=== PATIENT | male | born 1960 ===

== ENCOUNTER 2019-09-21 10:35 | Day surgery (SDC) | payer MEDICARE ==
[~2019-09-21] VITALS: Ht 157.5 cm; Wt 74.8 kg
[2019-09-21] VITALS (7 sets, daily range): BP systolic 109–150; BP diastolic 57–86
[~2019-09-21 10:35] MED LIST: Proparacaine 0.5% Opth Soln 15ml RIGHT EYE ONE
--- NOTE | 2019-09-21 10:48 | Anethesia Preoperative Eval ---
Anesthesia Pre-op PMH/ROS General Date of Evaluation: Sep 21, 2019 Anesthesiologist: Garfield ASA Score: ASA 2 Mallampati Score Class I : Soft palate, uvula, fauces, pillars visible Class II: Soft palate, uvula, fauces visible Class III: Soft palate, base of uvula visible Class IV: Only hard plate visible Mallampati Classification: Class II Surgeon: Frank Diagnosis: Vitreous opacity right eye Surgical Procedure: right eye vitrectomy Anesthesia History: none Family History: no anesthesia problems Allergies: Coded Allergies: No Known Allergies (Unverified , 09/20/19) Medications: see eMAR Patient NPO?: Yes NPO Date: Sep 20, 2019 NPO Time: 22:00 Past Medical History Cardiovascular: Reports: HTN, other - HLD; Denies: CAD, [place], valve dz, arrhythmia Pulmonary: Denies: asthma, COPD, CATHRYN, other Gastrointestinal/Genitourinary: Reports: GERD, other - gastritis; Denies: CRI, ESRD Neurologic/Psychiatric: Reports: depression/anxiety; Denies: dementia, CVA, TIA, other Endocrine: Denies: DM, hypothyroidism, steroids, other HEENT: Denies: cataract (L), cataract (R), glaucoma, [place] (L), [place] (R), other Hematology/Immune: Denies: anemia, DVT, bleeding disorder, other Musculoskeletal/Integumentary: Reports: other - low back pain/injury; Denies: OA, RA, DJD, DDD, edema PSxH Narrative: Denies Anesthesia Pre-op Phys. Exam Physician Exam see chart Constitutional: NAD Cardiovascular: RRR Respiratory: CTA Airway Exam Mallampati Score: Class II MO: full ROM: full Anesthesia Pre-op A/P Labs see chart Studies Pre-op Studies: EKG - sr Risk Assessment & Plan Assessment: ASA II Plan: MAC Status Change Before Surgery: No Pre-Antibiotics Drug: N/A Shikha Rios MD Sep 21, 2019 10:48
[2019-09-21] MEDS ORDERED: Cyclopentolate 1% Opth Sol 2ml ONE (10:53)
[2019-09-21] MEDS ORDERED: Tropicamide 1% Opth 15ml Soln ONE (10:54)
[2019-09-21] MEDS ORDERED: Proparacaine 0.5% Opth Soln 15ml ONE (10:54)
[2019-09-21] MEDS ORDERED: Phenylephrine 2.5% Op 2ml Soln ONE (10:54)
[2019-09-21] MEDS: Cyclopentolate 1% Opth Sol 2ml RIGHT EYE SCH ×3 (11:20→11:45)
[2019-09-21] MEDS: Phenylephrine 2.5% Op 2ml Soln RIGHT EYE SCH ×3 (11:21→11:45)
[2019-09-21] MEDS: Tropicamide 1% Opth 15ml Soln RIGHT EYE SCH ×3 (11:21→11:46)
[2019-09-21] MEDS ORDERED: EPINEPHrine 1mg/1ml Amp ONE (11:45)
[2019-09-21] MEDS ORDERED: Kenalog-40 1ml Vial ONE (11:45)
[2019-09-21] MEDS ORDERED: Maxitrol Opth Susp 5ml ONE (11:46)
[2019-09-21] MEDS ORDERED: Pred Forte 1% Opth Susp 1ml ONE (11:46)
[2019-09-21] MEDS ORDERED: Goniotaire 2.5% Opth Soln - 15ml ONE (11:46)
[2019-09-21] MEDS ORDERED: Dexamethasone 4mg/ml vial ONE (11:46)
[2019-09-21] MEDS ORDERED: BSS 500ml btl ONE (11:46)
[2019-09-21] MEDS ORDERED: Lidocaine 2% MPF 5ml Vial INJ ONE (11:46)
[2019-09-21] MEDS ORDERED: BSS 15ml BTL ONE (11:46)
[2019-09-21] MEDS ORDERED: Tetracaine 0.5% Opth 4ml Soln ONE (11:47)
[2019-09-21] MEDS ORDERED: Povidone-Iodine 5% opth solution ONE (11:47)
[2019-09-21] MEDS ORDERED: Bupivacaine 0.75% 30ml vial INJ ONE (11:47)
[2019-09-21] MEDS ORDERED: Sodium Hyaluronate 10 mg/ml 0.85ml ONE (11:47)
[2019-09-21] MEDS ORDERED: ZETIA10 MG ORAL (11:55)
[2019-09-21] MEDS ORDERED: TRAMADOL HCL50 MG ORAL (11:56)
[2019-09-21] MEDS ORDERED: BUTRANS1 EAC1 TD (11:57)
[2019-09-21] MEDS ORDERED: ASPIR 8181 MG ORAL (11:58)
[2019-09-21] MEDS ORDERED: AMLODIPINE BESYL5 MG ORAL (11:59)
[2019-09-21] MEDS ORDERED: GABAPENTIN300 MG ORAL (11:59)
[2019-09-21] MEDS ORDERED: FLUOXETINE HCL20 MG ORAL (12:00)
[2019-09-21] MEDS ORDERED: LANSOPRAZOLE15 MG ORAL (12:01)
[2019-09-21] MEDS ORDERED: DICLOFENAC SOD100 GM TP (12:03)
[2019-09-21] MEDS ORDERED: LORATADINE10 M2 PO (12:04)
[2019-09-21] MEDS ORDERED: LR 1000ml 1,000 ML IVLG SCH (12:05)
[2019-09-21] MEDS ORDERED: Polysporin Opth Oint 3.5gm ONE (12:09)
[2019-09-21] MEDS ORDERED: Midazolam 2mg/2ml Inj IVP PRN (12:15)
[2019-09-21] MEDS ORDERED: DiphenhydrAMINE 50mg/ml Inj IVP PRN (12:15)
[2019-09-21] MEDS ORDERED: LORazepam Inj 2mg/ml 1ml IV PRN (12:15)
--- NOTE | 2019-09-21 12:45 | Pre-Procedure Note/Attestation ---
Pre-Procedure Note/Attestation Complete Prior to Procedure Planned Procedure: right Procedure Narrative: Plan for PPV OD Indications for Procedure Pre-Operative Diagnosis: PVD/VO OD Attestation I attest that I discussed the nature of the procedure; its benefits; risks and complications; and alternatives (and the risks and benefits of such alternatives ), prior to the procedure, with the patient (or the patient's legal accounting representative). I attest that, if there was a reasonable possibility of needing a blood transfusion, the patient (or the patient's legal accounting representative) was given the [facility] standardized written summary, pursuant to the [place] Blood Safety Act ([place] Health and Safety Code # 1645, as amended). I attest that I re-evaluated the patient just prior to the surgery and that there has been no change in the patient's H&P, except as documented below: Rodolfo Marie M.D., MD Sep 21, 2019 12:45
--- NOTE | 2019-09-21 12:46 | Operative Note - PDOC ---
Operative Note Operative Note Chief Complaint: Floaters OD Pre-op Diagnosis: PVD/VO OD Procedure: PPV/EL/AFE OD Post-op Diagnosis: Same Surgeon: Frank Anesthesia: local Specimen: none Complications: none Condition: stable Estimated Blood Loss: none Drains: none Implant(s) used?: No Indications for Procedure Location: [facility] Pre-operative Diagnosis: 1. Vitreous opacities, RIGHT EYE 2. Cataract, RIGHT EYE Post-operative Diagnosis: Same Procedure: Pars plana vitrectomy, endolaser, air-fluid exchange, RIGHT EYE Surgeon: Rodolfo Marie M.D. Anesthesia: RB Complications: None Indications for the procedure: The patient has vision loss due significant floaters that are dense and bothersome despite long-term observation; presents today for surgery after review of the risks, benefits, alternative and signing informed consent into the medical chart. Description of Procedure Procedure performed: The patient was met in the pre-operative area where informed consent was reviewed. The operative eye was verified, marked and dilated. The patient was transferred to the operative suite, where cardiopulmonary monitoring was established and peribulbar anesthetic was administered without complications. The eye was prepped and draped in sterile ophthalmic fashion. Under microscope visualization the 23 gauge infusion line was placed 4 millimeters inferotemporally. After visualization of the tip in the vitreous cavity, the infusion line was turned on. The superotemporal and superonasal cannulas were placed. Under BIOM visualization, peripheral and core vitrectomy was performed; the dense floaters were removed meticulously with staining of kenalog. Inspection of the periphery revealed no iatrogenic breaks. Endolaser was applied to prevent the development of retinal detachment. The eye maintained normal intraocular pressure. Subconjunctival vancomycin and dexamethasone were administered. The lid speculum was removed. The eye was cleaned of prep and drape. Atropine drop and Maxitrol ointment was applied. A pressure patch was placed. The patient was turned over to the anesthesia team and transferred in stable condition to the PACU. Rodolfo Marie M.D., MD Sep 21, 2019 12:46
[2019-09-21] MEDS ORDERED: Sterile Water Irrig 1000ml IRRIG ONE (13:00)
[2019-09-21] MEDS ORDERED: LR 1000ml ONE (13:00)
[2019-09-21] MEDS ORDERED: Propofol 200mg/20ml IV ONE (13:00)
[2019-09-21] MEDS ORDERED: NS Irrig 1000ml ONE (13:00)
[2019-09-21] MEDS ORDERED: Lidocaine 1% MPF 10mg/ml 5ml ONE (13:00)
--- NOTE | 2019-09-21 13:38 | Immediate Post-Op Evaluation ---
Immediate Post-Op Evalulation Immediate Post-Op Evalulation Procedure: Right eye vitrectomy Date of Evaluation: Sep 21, 2019 Time of Evaluation: 13:39 IV Fluids: 300 Blood Products: 0 Estimated Blood Loss: 0 Urinary Output: 0 Blood Pressure Systolic: 125 Blood Pressure Diastolic: 61 Pulse Rate: 52 Respiratory Rate: 16 O2 Sat by Pulse Oximetry: 98 Temperature (Fahrenheit): 97.2 Pain Score (1-10): 0 Nausea: No Vomiting: No Complications 0 Patient Status: awake, reacts, patent, none Hydration Status: adequate Drug: N/A Shikha Rios MD Sep 21, 2019 13:38
--- NOTE | 2019-09-21 13:38 | 48 Hour Post Anesthesia Eval ---
Post Anesthesia Evaluation Procedure: Right eye vitrectomy Date of Evaluation: Sep 21, 2019 Airway: patent Nausea: No Vomiting: No Hydration Status: adequate Cardiopulmonary Status: at baseline Mental Status/LOC: patient returned to baseline Post-Anesthesia Complications: 0 Follow-up care needed: ready to discharge Shikha Rios MD Sep 21, 2019 13:38
== END 2019-09-21 14:45 | disposition home or self-care (01) ==
LOC: SUR 10:35
DX: H43.391 Other vitreous opacities, right eye (principal); I10 Essential (primary) hypertension; E78.5 Hyperlipidemia, unspecified; K21.9 Gastro-esophageal reflux disease without esophagitis; F32.9 Major depressive disorder, single episode, unspecified; F41.9 Anxiety disorder, unspecified
CPT/HCPCS: 67039; J1100; J2704; J3301; J3370; J3490; J7120; 94003; 94150